=== PATIENT | female | born 1955 | race African-American/Black ===

== ENCOUNTER 2021-06-12 13:45 | Emergency (ER) | payer SELFPAY ==
[~2021-06-12] VITALS: Ht 162.6 cm; Wt 100.2 kg
[2021-06-12 14:29] VITALS: BP 102/46
[2021-06-12] MEDS ORDERED: KETOROLAC TROMETH 60MG/2ML VIAL IM ONE (14:30)
[2021-06-12] MEDS ORDERED: IBUP800T26 PO (14:30)
== END 2021-06-12 18:04 | disposition home or self-care (01) ==
LOC: ER 13:45
DX: S92.332A Displaced fracture of third metatarsal bone, left foot, initial encounter for closed fracture (principal); S92.342A Displaced fracture of fourth metatarsal bone, left foot, initial encounter for closed fracture; S92.352A Displaced fracture of fifth metatarsal bone, left foot, initial encounter for closed fracture; S82.892A Other fracture of left lower leg, initial encounter for closed fracture; W19.XXXA Unspecified fall, initial encounter; Y93.89 Activity, other specified; Y92.89 Other specified places as the place of occurrence of the external cause; Y99.8 Other external cause status
CPT/HCPCS: 29515; 73630; 73700; 96372; 99284; J1885

== ENCOUNTER 2021-12-06 11:43 | Day surgery (SDC) | payer MEDICARE, MEDICAID ==
[2021-12-02 10:23] LABS: Basophils # (auto) 0.1 10 ^3/uL (0-0.2); Basophils % (auto) 0.9 % (0.0-2.0); Eosinophils # (auto) 0.1 10 ^3/uL (0-0.8); Hemoglobin 12.7 g/dL (12.2-16.2); Lymphocytes # (auto) 1.7 10 ^3/uL (0.4-5.4); Neutrophils # (auto) 6.4 10 ^3/uL (1.6-8.6); Nucleated Red Blood Cells % 0.1 %
[2021-12-02 10:25] LABS: Eosinophils % (auto) 1.3 % (0.0-7.0); Lymphocytes % (auto) 18.5 % (10.0-50.0); Mean Corpuscular Hgb Conc. 32.7 g/dL (32.0-36.0); Mean Corpuscular Volume 79.6 fL (80.0-100.0); Monocytes # (auto) 0.8 10 ^3/uL (0-1.3); Monocytes % (auto) 8.6 % (0.0-12.0); Neutrophils % (auto) 70.7 % (37.0-80.0); Red Cell Distribution Width 14.5 % (11.8-14.3); White Blood Cell 9.1 10^3/uL (4.4-10.8)
[2021-12-02 10:53] LABS: Urine Bacteria NONE SEEN /hpf (None Seen); Urine Blood Negative /uL (Negative); Urine Specific Gravity 1.016 (1.001-1.035); Urine WBC 1 /hpf (0 - 5)
[2021-12-02 11:11] LABS: INR 0.93 (0.9-1.15); Partial Thromboplastin Time 26.6 sec (24.6-33.4)
[2021-12-02 11:18] LABS: Potassium 4.1 mmol/L (3.5-5.1)
[2021-12-02 11:29] LABS: Albumin 3.7 g/dL (3.4-5.0); Bilirubin, Total 0.6 mg/dL (0.2-1.0); Calcium 8.9 mg/dL (8.5-10.1); Total Protein 7.2 g/dL (6.4-8.2)
[~2021-12-06] VITALS: Ht 162.6 cm; Wt 103.0 kg
[~2021-12-06 11:43] MED LIST: CITA10TA8 PO; IBUP800T27 PO; METH750T22 PO; PANT40TA2 PO
[2021-12-06] MEDS ORDERED: fentaNYL CITRATE 100 MCG/2 ML VL ONE (12:45)
[2021-12-06] MEDS ORDERED: MIDAZOLAM HCL 2MG/2ML 2ml VIAL (1mg/ml) ONE (12:46)
[2021-12-06] MEDS ORDERED: PROPOFOL 10 MG/ML 20 ML IV ONE (12:50)
[2021-12-06] MEDS ORDERED: ONDANSETRON HCL 4 MG/2 ML VIAL IV PRN (13:45)
[2021-12-06 13:55] VITALS: BP 122/66
== END 2021-12-06 14:55 | disposition home or self-care (01) ==
LOC: GI 11:43
PROVIDERS: ATTEND Internal Medicine Gastroenterology
DX: R10.12 Left upper quadrant pain (principal); K29.50 Unspecified chronic gastritis without bleeding; B96.81 Helicobacter pylori [H. pylori] as the cause of diseases classified elsewhere; E66.01 Morbid (severe) obesity due to excess calories; F17.200 Nicotine dependence, unspecified, uncomplicated; Z98.890 Other specified postprocedural states; Z79.899 Other long term (current) drug therapy; Z68.39 Body mass index [BMI] 39.0-39.9, adult; Z20.822 Contact with and (suspected) exposure to COVID-19
CPT/HCPCS: 36415; 43239; 80053; 81001; 85025; 85610; 85730; 88305; 88342; J2250; J2704; J3010; J7030; U0003; G0500

== ENCOUNTER 2022-03-06 11:31 | Emergency (ER) | payer MEDICARE, MEDICAID ==
[~2022-03-06] VITALS: Ht 162.6 cm; Wt 108.0 kg
[2022-03-06 11:48] VITALS: BP 126/76
[2022-03-06 12:11] LABS: Basophils # (auto) 0.1 10 ^3/uL (0-0.2); Basophils % (auto) 1.1 % (0.0-2.0); Eosinophils # (auto) 0.1 10 ^3/uL (0-0.8); Hematocrit 40.4 % (36.0-46.0); Hemoglobin 13.2 g/dL (12.2-16.2); Lymphocytes # (auto) 1.7 10 ^3/uL (0.4-5.4); Lymphocytes % (auto) 21.5 % (10.0-50.0); Mean Corpuscular Hgb Conc. 32.7 g/dL (32.0-36.0)
[2022-03-06 12:12] LABS: Eosinophils % (auto) 1.1 % (0.0-7.0); Mean Corpuscular Hemoglobin 26.2 pg (28.0-32.0); Monocytes # (auto) 0.7 10 ^3/uL (0-1.3); Monocytes % (auto) 8.4 % (0.0-12.0); Neutrophils # (auto) 5.5 10 ^3/uL (1.6-8.6); Neutrophils % (auto) 67.9 % (37.0-80.0); Nucleated Red Blood Cells % 0.1 %; Red Blood Cells 5.05 10^6/uL (4.0-5.20); Red Cell Distribution Width 14.3 % (11.8-14.3)
[2022-03-06 12:30] LABS: Albumin 3.9 g/dL (3.4-5.0); Calcium 9.1 mg/dL (8.5-10.1); Potassium 4.8 mmol/L (3.5-5.1)
[2022-03-06 12:34] LABS: BUN/Creatinine Ratio 18.7; Bilirubin, Total 0.7 mg/dL (0.2-1.0); Total Protein 7.3 g/dL (6.4-8.2)
[2022-03-06 14:49] LABS: Urine Bacteria NONE SEEN /hpf (None Seen); Urine Blood Negative /uL (Negative); Urine Specific Gravity 1.018 (1.001-1.035); Urine WBC 2 /hpf (0 - 5)
== END 2022-03-06 16:21 | disposition home or self-care (01) ==
LOC: ER 11:31
DX: K80.80 Other cholelithiasis without obstruction (principal); Z79.899 Other long term (current) drug therapy; Z79.1 Long term (current) use of non-steroidal anti-inflammatories (NSAID)
CPT/HCPCS: 36415; 71045; 74176; 80053; 81001; 84484; 85025; 93005

== ENCOUNTER 2024-06-18 12:29 | Emergency (ER) | payer MEDICARE, MEDICAID ==
[~2024-06-18] VITALS: Ht 162.6 cm; Wt 99.5 kg
[~2024-06-18 12:29] MED LIST changes: +IBUP-1456 PO; -IBUP800T27 PO; +METH-1182 PO; -METH750T22 PO
[2024-06-18 13:26] VITALS: BP 116/68; PULSE 67; RESP 19; TEMP 97.5; O2SAT 98
[2024-06-18] MEDS: KETOROLAC TROMETH 30 MG/ML 1ML VIAL IM ONE (13:50)
--- NOTE | 2024-06-18 14:17 | DVH ---
CLINICAL INDICATION: Left Wrist pain TECHNIQUE: 3 radiographic views of the left wrist were obtained. Comparison: None FINDINGS/IMPRESSION: There is no evidence of acute fracture or dislocation. The visualized joint space is well maintained. The alignment is anatomical. There is no radiopaque foreign body.
[2024-06-18] MEDS ORDERED: ACET500T58 PO (14:23)
[2024-06-18] MEDS ORDERED: PRED20TA2 PO (14:23)
--- NOTE | 2024-06-18 14:23 | ED.PDOC ---
Musculoskeletal HPI Comments 69 F presents for subacute L wrist pain No trauma/injury Pain with flexion/extension and no pain at rest Worst to the distal radius Chief Complaint: Upper Extremity Time Seen by MD: 13:13 Primary Care Provider: NONE Reviewed Notes: Nurses Notes, Medications, Allergies Allergies: Coded Allergies: NO KNOWN ALLERGIES (Unverified , 06/12/21) Home Meds Active Scripts Acetaminophen (Acetaminophen) 500 Mg Tab, 500 MG PO Q6HP PRN for 10 Days, #40 TAB 0 Refills Prov:KATYA CONDE AIRCRAFT ELECTRICAL SYSTEMS SPECIALIST 06/18/24 Prednisone (Prednisone) 20 Mg Tab, 60 MG PO DAILY for 5 Days, #15 TAB 0 Refills Prov:KATYA CONDE [employer] ELECTRICAL SYSTEM[employer] SPECIALIST 06/18/24 Reported Medications Ibuprofen (Ibuprofen) 800 Mg Tab, 800 MG PO Q8HP, TAB 12/02/21 Methocarbamol (Methocarbamol) 750 Mg Tab, 750 MG PO DAILY, TAB 12/02/21 Pantoprazole Sodium Sesquihydr (Protonix) 40 Mg Tab, 40 MG PO DAILY, #30 TAB 12/02/21 Citalopram Hydrobromide (Celexa) Unknown Strength Tab, PO, TAB 12/02/21 Information Source: Patient Mode of Arrival: Ambulatory Past Medical History PAST MEDICAL HISTORY: Denies Surgical History: Denies all surgeries 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: Denies all ARTIFICIAL MARBLE WORKER Hx, No Pertinent 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 Family History Family History: Reviewed,noncontributory to illness Social History Smoker: Non-Smoker Alcohol: Denies ETOH Use Drugs: Denies Drug Use Lives In: Home All Other Systems: Reviewed and Negative (per hpi) Physical Exam General Appearance: No Apparent Distress, Normal HEENT: Normal ENT Inspection, Pharynx Normal, TMs Normal Neck: Full Range of Motion, Non-Tender, Normal, Normal Inspection Respiratory: Chest Non-Tender, Lungs Clear, No Accessory Muscle Use, No Respiratory Distress, Normal Breath Sounds Cardiovascular: No Edema, No JVD, No Murmur, No Gallop, Normal Peripheral Pulses, Regular Rate/Rhythm Breast Exam: Deferred Gastrointestinal: No Organomegaly, Non Tender, No Pulsatile Mass, Normal Bowel Sounds, Soft Genitalia: Deferred Pelvic: Deferred Rectal: Deferred Extremities: No calf tenderness, Normal capillary refill, Normal inspection, No rmal range of motion, Non-tender, No pedal edema Musculoskeletal : Location: Left Extremity Location: Wrist (localized ttp) Apperance: Normal Neurologic: Alert, No Motor Deficits, Normal Affect, Normal Mood, No Sensory Deficits Cerebellar Function: Normal Reflexes: Normal Skin: Dry, Normal Color, Warm Lymphatic: No Adenopathy Was a procedure done? Was a procedure done?: No Differential Diagnosis EXT Differential Diagnosis: Sprain X-Ray, Labs, Meds, VS Vital Signs Date Time Temp Pulse Resp B/P (MAP) Pulse Ox O2 Delivery O2 Flow Rate FiO2 06/18/24 13:26 67 19 98 Room Air 06/18/24 13:26 97.5 67 19 116/68 (84) 98 97.5 06/18/24 13:11 97.5 67 19 116/68 (84) 98 97.5 PATIENT: MARGOT KUMAR ACCT: [id number] UNIT: [id number] : 1955 LOC: ER ROOM / BED: / AGE / SEX: 69 / F ADM STATUS: REG ER SERVICE 1346 ORDERING PHYSICIAN: KATYA CONDE NP PROCEDURE(s): LWRI2 - L WRIST 2 VIEW XRAY REASON: Left Wrist pain ORDER NUMBER(s): [id number], ACCESSION NUMBER(s): [id number] CLINICAL INDICATION: Left Wrist pain TECHNIQUE: 3 radiographic views of the left wrist were obtained. Comparison: None FINDINGS/IMPRESSION: There is no evidence of acute fracture or dislocation. The visualized joint space is well maintained. The alignment is anatomical. There is no radiopaque foreign body. ATED BY: ANNAMARIE DC MD DICTATED DATE/TIME: 06/18/241413 SIGNED BY: ANNAMARIE DC MD SIGNED DATE/TIME: 06/18/241413 CC: X-Ray, Labs, Meds, VS Comment History and examination consistent of muscular injury or tendinitis Low likelihood of bony or more serious injury, VSS, pt stable X-ray ordered amd interpreted by me Take IBU 600 w/ food as needed for pain Recommended heat therapy Reviewed RICE management Avoid heavy lifting or strenuous activity Recommended range of motion exercises and limit heavy activity for 1 week Return precautions discussed Time of 1ST Reevaluation: 14:00 Reevaluation 1ST: Improved Patient Education/Counseling: Diagnosis, Treatment Family Education/Counseling: Diagnosis, Treatment Departure 1 Departure Time of Disposition: 14:22 Impression: Primary Impression: Wrist pain Qualified Codes: M25.532 - Pain in left wrist Disposition: 01 HOME / SELF CARE / HOMELESS Condition: Stable e-Prescriptions Acetaminophen (Acetaminophen) 500 Mg Tab 500 MG PO Q6HP PRN for 10 Days, #40 TAB 0 Refills Prov: KATYA CONDE NP 06/18/24 Prednisone (Prednisone) 20 Mg Tab 60 MG PO DAILY for 5 Days, #15 TAB 0 Refills Prov: KATYA CONDE NP 06/18/24 Discharged With: Self Critical Care Note Critical Care Time?: No Stability Stability form required: No Heart Score Heart Score: Heart Score Response (Comments) Value History N/A 0 EKG N/A 0 Age N/A 0 Risk Factors N/A 0 Troponin N/A 0 Total 0 KATYA CONDE NP Jun 18, 2024 14:23
== END 2024-06-18 14:28 | disposition home or self-care (01) ==
LOC: ER 12:29
DX: M25.532 Pain in left wrist (principal); Z79.899 Other long term (current) drug therapy; Z79.52 Long term (current) use of systemic steroids
CPT/HCPCS: 73100; 96372; 99283; J1885

== ENCOUNTER 2025-03-28 10:11 | Inpatient (IN) | payer OTHER, MEDICAID ==
[~2025-03-28] VITALS: Ht 160 cm; Wt 101.6 kg
[~2025-03-28 10:11] MED LIST changes: +ACET500T58 PO; +PRED20TA2 PO
[2025-03-28] MEDS: SODIUM CHLORIDE 0.9% 1,000 ML IV ONE ×2 (11:23→12:10)
[2025-03-28] MEDS ORDERED: ACETAMINOPHEN 650 MG RECT SUPP PR ONE (11:30)
--- NOTE | 2025-03-28 11:31 | ED.PDOC ---
GI ASSESSMENT HPI Comments 69 y.o female presents to the ED for a chief complaint of constipation. Patient was unable to pass BM for 4 days, states she then had a BM yesterday but developed SOB and generalized weakness leading up to today. Patient mentions " feeling sick", weak and trembling. She denies any abdominal pain, fever, chills, nausea, vomiting, diarrhea. patient BP read 89/56 while awaiting in the lobby. Chief Complaint: Constipation Time Seen by MD: 11:16 Primary Care Provider: NONE Reviewed Notes: Nurses Notes, Medications, Allergies Allergies: Coded Allergies: NO KNOWN ALLERGIES (Unverified , 06/12/21) Home Meds Active Scripts Acetaminophen (Acetaminophen) 500 Mg Tab, 500 MG PO Q6HP PRN for 10 Days, #40 TAB 0 Refills Prov:KATYA CONDE CEO ZIFF DAVIS 06/18/24 Prednisone (Prednisone) 20 Mg Tab, 60 MG PO DAILY for 5 Days, #15 TAB 0 Refills Prov:KATYA CONDE CEO ZIFF DAVIS 06/18/24 Reported Medications Ibuprofen (Ibuprofen) 800 Mg Tab, 800 MG PO Q8HP, TAB 12/02/21 Methocarbamol (Methocarbamol) 750 Mg Tab, 750 MG PO DAILY, TAB 12/02/21 Pantoprazole Sodium Sesquihydr (Protonix) 40 Mg Tab, 40 MG PO DAILY, #30 TAB 12/02/21 Citalopram Hydrobromide (Celexa) Unknown Strength Tab, PO, TAB 12/02/21 Information Source: Patient Mode of Arrival: Ambulatory Timing: Days (4) Duration: Since onset Vomitus: None Stool: Empty Severity: Moderate Recent: None Recent Hx of: None Pain Location: None Modifying Factors: Nothing Associated sign and symptoms: Constipation Past Medical History PAST MEDICAL HISTORY: Denies Surgical History: Cholecystectomy 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 INSPECTOR History: Denies all FABRICATION INSPECTOR Hx, No Pertinent FABRICATION INSPECTOR History Family History Family History: Reviewed,noncontributory to illness Social History Smoker: Non-Smoker Alcohol: Denies ETOH Use Drugs: Denies Drug Use Lives In: Home Constitutional: reports: weakness; denies: chills, diaphoresis, fatigue, fever, malaise, sweats, others EENTM: denies: blurred vision, double vision, ear bleeding, ear discharge, ear drainage, ear pain, ear ringing, eye pain, eye redness, hearing loss, mouth pain, mouth swelling, nasal discharge, nose bleeding, nose congestion, nose pain, photophobia, tearing, throat pain, throat swelling, voice changes, others Respiratory: reports: SOB at rest, shortness of breath; denies: cough, hemoptysis, orthopnea, SOB with excertion, stridor, wheezing, others Cardiovascular: denies: chest pain, dizzy spells, diaphoresis, Dyspnea on exertion, edema, irregular heart beat, left arm pain, lightheadedness, palpitations, PND, syncope, others Gastrointestinal: reports: constipated; denies: abdomen distended, abdominal pain, blood streaked bowels, diarrhea, dysphagia, difficulty swallowing, hematemesis, melena, nausea, poor appetite, poor fluid intake, rectal bleeding, rectal pain, vomiting, others Genitourinary: denies: abnormal vagina bleeding, burning, dyspareunia, dysuria, flank pain, frequency, hematuria, incontinence, pain, , vagina discharge, urgency, others Neurological: denies: dizziness, fainting, headache, left sided numbness, left sided weakness, numbness, paresthesia, pre-existing deficit, right sided numbness, right sided weakness, seizure, speech problems, tingling, tremors, weakness, others Musculoskeletal: denies: back pain, gout, joint pain, joint swelling, muscle pain, muscle stiffness, neck pain, others Integumetry: denies: bruises, change in color, change in hair/nails, dryness, laceration, lesions, lumps, rash, wounds, others Allergic/Immunocompromised: denies: Difficulty Healing, Frequent Infections, Hives, Itching, others Hematologic/Lymphatic: denies: anemia, blood clots, easy bleeding, easy bruising, swollen glands, others Endocrine: denies: excessive hunger, excessive sweating, excessive thirst, excessive urination, flushing, intolerance to cold, intolerance to heat, une xplained weight gain, unexplained weight loss, others Psychiatric: denies: anxiety, bipolar disorder, depression, hopeless, panic disorder, schizophrenia, sleepless, suicidal, others All Other Systems: Reviewed and Negative Physical Exam General Appearance: Moderate Distress HEENT: Normal ENT Inspection, Pharynx Normal, TMs Normal Neck: Full Range of Motion, Non-Tender, Normal, Normal Inspection Respiratory: Chest Non-Tender, Lungs Clear, No Accessory Muscle Use, No Respiratory Distress, Normal Breath Sounds Cardiovascular: Tachycardia Breast Exam: Deferred Gastrointestinal: No Organomegaly, Non Tender, No Pulsatile Mass, Normal Bowel Sounds, Soft Genitalia: Deferred Pelvic: Deferred Rectal: Deferred Extremities: No calf tenderness, Normal capillary refill, Normal inspection, Normal range of motion, Non-tender, No pedal edema Musculoskeletal : Apperance: Normal Neurologic: Alert, suction drum drier operator II-XII nml as Tested, No Motor Deficits, Normal Affect, Normal Mood, No Sensory Deficits Cerebellar Function: NOT DONE Reflexes: NOT DONE Skin: Dry, Normal Color, Warm Peripheral Pulses: 3+ Radial (R), 3+ Radial (L) Lymphatic: No Adenopathy Was a procedure done? Was a procedure done?: No GI differential Dx Differential Diagnosis: Bowel Obstruction, Constipation, Esophagitis, Gastritis/PUD, Gastroenteritis, Inflammatory BD X-Ray, Labs, Meds, VS Vital Signs Date Time Temp Pulse Resp B/P (MAP) Pulse Ox O2 Delivery O2 Flow Rate FiO2 03/28/25 11:48 100.4 03/28/25 11:24 100.4 109 21 89/56 (67) 94 100.4 03/28/25 10:15 97.9 114 18 92/58 96 97.9 Lab Test 03/28/25 11:23 Range/Units White Blood Count 16.7 H 4.4-10.8 10^3/uL Red Blood Count 5.11 4.0-5.20 10^6/uL Hemoglobin 13.5 12.2-16.2 g/dL Hematocrit 40.4 36.0-46.0 % Mean Corpuscular Volume 79.1 L 80.0-100.0 fL Mean Corpuscular Hemoglobin 26.4 L 28.0-32.0 pg Mean Corpuscular Hemoglobin Concent 33.4 32.0-36.0 g/dL Red Cell Distribution Width 14.6 H 11.8-14.3 % Platelet Count 319 140-450 10^3/uL Mean Platelet Volume 9.1 6.9-10.8 fL Neutrophils (%) (Auto) 87.8 H 37.0-80.0 % Lymphocytes (%) (Auto) 5.7 L 10.0-50.0 % Monocytes (%) (Auto) 5.7 0.0-12.0 % Eosinophils (%) (Auto) 0.2 0.0-7.0 % Basophils (%) (Auto) 0.6 0.0-2.0 % Neutrophils # (Auto) 14.7 H 1.6-8.6 10 ^3/uL Lymphocytes # (Auto) 1.0 0.4-5.4 10 ^3/uL Monocytes # (Auto) 1.0 0-1.3 10 ^3/uL Eosinophils # (Auto) 0 0-0.8 10 ^3/uL Basophils # (Auto) 0.1 0-0.2 10 ^3/uL Nucleated Red Blood Cells 0.1 % Sodium Level 140 136-145 mmol/L Potassium Level 4.2 3.5-5.1 mmol/L Chloride Level 107 98-107 mmol/L Carbon Dioxide Level 21 20-31 mmol/L Anion Gap 12 5-15 Blood Urea Nitrogen 8 L 9-23 mg/dL Creatinine 1.55 H 0.550-1.02 mg/dL Glomerular Filtration Rate Calc 36 >90 mL/min BUN/Creatinine Ratio 5.2 L 10.0-20.0 Serum Glucose 99 74-106 mg/dL Lactic Acid Level 1.8 0.4-2.0 mmol/L Calcium Level 8.8 8.7-10.4 mg/dL Current Medications Medications (Trade) Dose Ordered Sig/Leonidas Route Start Time Stop Time Status Last Admin Sodium Chloride 1,000 ml @ 1,000 mls/hr Q1H ONCE IV 03/28/25 11:15 03/28/25 12:14 DC 03/28/25 11:23 Sodium Chloride 1,650 ml @ 1,650 mls/hr ONCE ONCE IV 03/28/25 11:30 03/28/25 12:29 DC 03/28/25 11:40 Acetaminophen (Tylenol Tablet) 650 mg ONCE ONCE PO 03/28/25 11:45 03/28/25 11:46 DC 03/28/25 11:48 Ceftriaxone Sodium 50 ml @ 100 mls/hr ONCE ONCE IV 03/28/25 11:45 03/28/25 12:14 DC 03/28/25 11:48 Metronidazole 100 ml @ 100 mls/hr ONCE ONCE IV 03/28/25 11:45 03/28/25 12:44 DC 03/28/25 11:49 Patient alert. Complaining of abdominal pain. Vitals stable. Answering questions. Possible sepsis. Establish intravenous access. Was given fluids. Sepsis protocol. Continue monitoring. Time of 1ST Reevaluation: 11:27 Reevaluation 1ST: Unchanged Patient Education/Counseling: Diagnosis, Treatment, Prognosis Family Education/Counseling: No Family Present SEPSIS Sepsis Screen Date sepsis recognized/suspect: Mar 28, 2025 Time Sepsis recognized/suspect: 1017 Recent Procedure: No On Antibiotic Therapy: No Respiratory Rate >20: No Heart Rate >90: Yes Temp<36 C (96.8 F) or >38.3 C: No SBP <90 or MAP <65 mmHG: No New Acute Mental Status Change: No Is the patient on CPAP, BIPAP,: No Physician Orders Ct Ab Pel Wo Con-No Oral Or Iv (03/28/25 11:10) Blood Culture (03/28/25 11:10) Urinalysis (03/28/25 11:10) Sodium Chloride 0.9% (03/28/25 11:15) Vital Signs Date Time Temp Pulse Resp B/P (MAP) Pulse Ox O2 Delivery O2 Flow Rate FiO2 03/28/25 11:48 100.4 03/28/25 11:24 100.4 109 21 89/56 (67) 94 100.4 03/28/25 10:15 97.9 114 18 92/58 96 97.9 Laboratory Tests Test 03/28/25 11:23 Lactic Acid Level 1.8 mmol/L (0.4-2.0) White Blood Count 16.7 10^3/uL (4.4-10.8) H Medications Medications Dose Ordered Sig/Leonidas Route Start Time Stop Time Status Last Admin Dose Admin Acetaminophen 650 mg ONCE ONCE PO 03/28/25 11:45 03/28/25 11:46 DC 03/28/25 11:48 Ceftriaxone Sodium 50 ml @ 100 mls/hr ONCE ONCE IV 03/28/25 11:45 03/28/25 12:14 DC 03/28/25 11:48 Metronidazole 100 ml @ 100 mls/hr ONCE ONCE IV 03/28/25 11:45 03/28/25 12:44 DC 03/28/25 11:49 Sodium Chloride 1,000 ml @ 1,000 mls/hr Q1H ONCE IV 03/28/25 11:15 03/28/25 12:14 DC 03/28/25 11:23 Sodium Chloride 1,650 ml @ 1,650 mls/hr ONCE ONCE IV 03/28/25 11:30 03/28/25 12:29 DC 03/28/25 11:40 Departure 1 Departure Time of Disposition: 12:50 Impression: Primary Impression: Sepsis, unspecified organism Qualified Codes: A41.9 - Sepsis, unspecified organism Disposition: ADMITTED INPATIENT Admit to: Med Surg Condition: Guarded Critical Care Note Critical Care Time?: No Stability Stability form required: No I personally scribed for KALIE WALKER MD ([email or web address]) on 03/28/25 at 11:31. Electronically submitted by Opal Reid ([facility]). KALIE WALKER MD Mar 28, 2025 11:31
[2025-03-28] MEDS: SODIUM CHLORIDE 0.9% 1,650 ML IV ONE (11:40)
[2025-03-28] MEDS: ACETAMINOPHEN 325 MG TAB PO ONE ×2 (11:48→11:54)
[2025-03-28 11:53] LABS: Hematocrit 40.4 % (36.0-46.0); Hemoglobin 13.5 g/dL (12.2-16.2); Mean Corpuscular Hemoglobin 26.4 pg (28.0-32.0); Mean Corpuscular Volume 79.1 fL (80.0-100.0); Nucleated Red Blood Cells % 0.1 %
[2025-03-28 11:59] LABS: Potassium 4.2 mmol/L (3.5-5.1); Sodium 140 mmol/L (136-145)
[2025-03-28 12:00] LABS: Anion Gap 12 (5-15); Carbon Dioxide 21 mmol/L (20-31)
[2025-03-28 12:01] LABS: Calcium 8.8 mg/dL (8.7-10.4)
[2025-03-28 12:05] LABS: Glucose 99 mg/dL (74-106)
[2025-03-28 12:06] LABS: BUN/Creatinine Ratio 5.2 (10.0-20.0)
--- NOTE | 2025-03-28 12:20 | DVH ---
EXAM DESCRIPTION: CT CT AB PEL WO CON-NO ORAL OR IV CLINICAL HISTORY: constipation COMPARISON: CT ABD PELVIS WO CONTRAST on DOS: 03/06/22 TECHNIQUE: CT abdomen and pelvis without IV contrast was performed. Coronal and sagittal MPR images were generated.CTDI/ DLP = 19.09 / 1118.26 Dose reduction technique with one or more of the following methods was performed: Automated exposure control, adjustment of the mA and/or kV according to patient size, use of iterative reconstruction technique FINDINGS: Lower chest: Stable pulmonary micronodules in the lung bases. Liver: Homogenous in attenuation. . Biliary: Status post cholecystectomy. No biliary ductal dilatation. Pancreas: No fat stranding or focal lesion. Spleen: Normal in size.. Adrenal glands: No nodularity. Kidneys: No nephrolithiasis. No hydroureteronephrosis. . Bladder: Underdistended, limiting evaluation. Reproductive organs: Normal. Bowel: No bowel wall thickening or dilatation. Colonic diverticulosis without evidence of diverticulitis. Normal appendix.. Peritoneum: No free fluid. No free air. Vessels: Normal caliber abdominal aorta. Moderate atherosclerotic calcifications.. Lymph nodes: No suspicious lymph nodes. Soft tissues: Unremarkable. . Osseous structures: No acute fracture or subluxation. No suspicious osseous lesions. Degenerative changes of the visualized thoracolumbar spine. IMPRESSION: 1. No acute abnormality within the abdomen or pelvis.
[2025-03-28 12:28] LABS: Blood Urea Nitrogen 8 mg/dL (9-23); Chloride 107 mmol/L (98-107)
[2025-03-28] MEDS ORDERED: VANCOMYCIN PER PHARMACY 0 MG IV SCH (13:15)
[2025-03-28] MEDS ORDERED: ACETAMINOPHEN 325 MG TAB PO PRN (13:15)
[2025-03-28] MEDS ORDERED: ONDANSETRON HCL 4 MG/2 ML VIAL IV PRN (13:15)
--- NOTE | 2025-03-28 13:21 | DVHHPRES ---
History of Present Illness Resident Creating Document: OSCAR VALENTIN RESIDENT History of Present Illness Judy Marcos is a 69-year-old female patient who presents to the ED with chief complaint of generalized weakness, fatigue, chills and headaches which all started one night before her admission. Upon arrival to emergency department patient was found to have low-grade fever, leukocytosis and hypotension, initiating IV vasopressors, IV antibiotics, IV fluids and ordering pancultures.. Denies any other associated symptoms including dysuria, abdominal pain, dyspnea, meningeal symptoms and skin lesions. Past medical history: Chronic back pain Surgical history: Cholecystectomy Family history: Noncontributory Social history: Lives in [place] alone (next of kin is son). Denies current tobacco, alcohol and other drug abuse. 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 Allergies: Denies Home medication: [place] Patient seen and examined at bedside. Currently has no new complaints. Is requiring low-dose of IV vasopressors. Patient admitted for further evaluation. Past Medical History Per HPI Past Surgical History Per HPI Family History Per HPI Past Social History Per Review of Systems Review of Systems Per HPI Allergies: Coded Allergies: NO KNOWN ALLERGIES (Unverified , 06/12/21) Medications Current Medications Medications Dose Ordered Sig/Leonidas Route Start Time Stop Time Status Last Admin Dose Admin Norepinephrine Bitartrate 250 ml @ 3.75 mls/hr Q24H IV 03/28/25 13:15 UNV Exam Vital Signs Vital Signs Date Time Temp Pulse Resp B/P (MAP) Pulse Ox O2 Delivery O2 Flow Rate FiO2 03/28/25 11:48 100.4 03/28/25 11:24 109 21 89/56 (67) 94 Exam Patient lying in bed, in no acute distress General: Lucid, afebrile, mucosae are moist Cardiovascular: Normal S1 and S2. No murmurs, gallops or rubs Respiratory: Normal ventilation mechanics. Clear lung sounds on auscultation Abdomen: Soft, nontender, no organomegaly, normal bowel sounds MSK/skin: Mobilizes 4 limbs. Skin is dry and warm Neurological: Oriented in 3 spheres. No motor no sensitive deficits. Pupils are isocoric and reactive Labs/Xrays Labs Test 03/28/25 11:23 03/28/25 11:22 Range/Units White Blood Count 16.7 H 4.4-10.8 10^3/uL Red Blood Count 5.11 4.0-5.20 10^6/uL Hemoglobin 13.5 12.2-16.2 g/dL Hematocrit 40.4 36.0-46.0 % Mean Corpuscular Volume 79.1 L 80.0-100.0 fL Mean Corpuscular Hemoglobin 26.4 L 28.0-32.0 pg Mean Corpuscular Hemoglobin Concent 33.4 32.0-36.0 g/dL Red Cell Distribution Width 14.6 H 11.8-14.3 % Platelet Count 319 140-450 10^3/uL Mean Platelet Volume 9.1 6.9-10.8 fL Neutrophils (%) (Auto) 87.8 H 37.0-80.0 % Lymphocytes (%) (Auto) 5.7 L 10.0-50.0 % Monocytes (%) (Auto) 5.7 0.0-12.0 % Eosinophils (%) (Auto) 0.2 0.0-7.0 % Basophils (%) (Auto) 0.6 0.0-2.0 % Neutrophils # (Auto) 14.7 H 1.6-8.6 10 ^3/uL Lymphocytes # (Auto) 1.0 0.4-5.4 10 ^3/uL Monocytes # (Auto) 1.0 0-1.3 10 ^3/uL Eosinophils # (Auto) 0 0-0.8 10 ^3/uL Basophils # (Auto) 0.1 0-0.2 10 ^3/uL Nucleated Red Blood Cells 0.1 % Lactic Acid Level 1.8 0.4-2.0 mmol/L SEPSIS Sepsis Screen Date sepsis recognized/suspect: Mar 28, 2025 Time Sepsis recognized/suspect: 1017 Recent Procedure: No On Antibiotic Therapy: No Respiratory Rate >20: No Heart Rate >90: Yes Temp<36 C (96.8 F) or >38.3 C: No SBP <90 or MAP <65 mmHG: No New Acute Mental Status Change: No Is the patient on CPAP, BIPAP,: No Physician Orders Ct Ab Pel Wo Con-No Oral Or Iv (03/28/25 11:10) Blood Culture (03/28/25 11:10) Urinalysis (03/28/25 11:10) Sodium Chloride 0.9% (03/28/25 11:15) Norepinephrine 8 Mg/250ml Kit (Levophed) (03/28/25 13:15) Vitamin D, 25-Hydroxy (03/28/25 13:11) Vitamin B12 (03/28/25 13:11) Urinalysis (03/28/25 13:11) Thyroid Stimulating Hormone (03/28/25 13:11) PTPTT (03/28/25 13:11) Phosphorus (03/28/25 13:11) Magnesium (03/28/25 13:11) Lipid Panel (03/28/25 13:11) Lipase (03/28/25 13:11) Hemoglobin A1c (03/28/25 13:11) Drug Screen (03/28/25 13:11) Comprehensive Metabolic Panel (03/28/25 13:11) Chest Xray 1 View (03/28/25 13:11) Urine Bacterial Culture (03/28/25 13:11) Respiratory Culture W/ Gs (03/28/25 13:11) Mrsa Screen (03/28/25 13:11) Rapid Influenza A&B (03/28/25 13:11) Covid19 Antigen Abby (03/28/25 ) Hepatic Panel (03/28/25 13:13) Admit (03/28/25 13:13) Code Status (03/28/25 13:13) Acetaminophen Tablet (Tylenol Tablet) (03/28/25 13:15) Ondansetron Hcl (Zofran) (03/28/25 13:15) Complete Blood Count (03/29/25 04:00) Comprehensive Metabolic Panel (03/29/25 04:00) Npo (Nothing By Mouth) Diet (03/28/25 Lunch) Echo 2d Mode Cardiac Dop (03/28/25 13:13) Morphine Sulfate Injection (03/28/25 13:15) Enoxaparin Sodium (Lovenox) (03/29/25 10:00) Oxygen By Nasal Cannula (03/28/25 13:13) Stat Ekg For Chest Pain (03/28/25 13:13) Notify Md Of Changes From Base (03/28/25 13:13) Abstract Writer For 24 Hours (03/28/25 13:13) Emergency Dysrhythmia Protocol (03/28/25 13:13) Rhythm Strips Once Every Shift (03/28/25 13:13) Sodium Chloride 0.9% (03/28/25 13:15) Cefepime 1gm/50ml (Maxipime 1gm/50ml) (03/28/25 14:00) Vancomycin Per Pharmacy (03/28/25 13:15) Vital Signs Date Time Temp Pulse Resp B/P (MAP) Pulse Ox O2 Delivery O2 Flow Rate FiO2 03/28/25 11:48 100.4 03/28/25 11:24 100.4 109 21 89/56 (67) 94 100.4 03/28/25 10:15 97.9 114 18 92/58 96 97.9 Laboratory Tests Test 03/28/25 11:23 Lactic Acid Level 1.8 mmol/L (0.4-2.0) White Blood Count 16.7 10^3/uL (4.4-10.8) H Medications Medications Dose Ordered Sig/Leonidas Route Start Time Stop Time Status Last Admin Dose Admin Acetaminophen 650 mg ONCE ONCE PO 03/28/25 11:45 03/28/25 11:46 DC 03/28/25 11:48 650 MG Ceftriaxone Sodium 50 ml @ 100 mls/hr ONCE ONCE IV 03/28/25 11:45 03/28/25 12:14 DC 03/28/25 11:48 100 MLS/HR Metronidazole 100 ml @ 100 mls/hr ONCE ONCE IV 03/28/25 11:45 03/28/25 12:44 DC 03/28/25 11:49 100 MLS/HR Sodium Chloride 1,000 ml @ 1,000 mls/hr Q1H ONCE IV 03/28/25 11:15 03/28/25 12:14 DC 03/28/25 11:23 1,000 MLS/HR Sodium Chloride 1,650 ml @ 1,650 mls/hr ONCE ONCE IV 03/28/25 11:30 03/28/25 12:29 DC 03/28/25 11:40 1,650 MLS/HR Assessment/Plan Assessment/Plan ASSESSMENT Septic shock probably secondary to UTI Complicated UTI TIMI hemodynamically mediated (VMN) Chronic back pain Obesity PLAN Admit patient to ICU. Currently on IV fluids, IV vasopressors (norepinephrine low-dose) Urine analysis shows mildly positive esterase. Currently under empiric IV antibiotic (cefepime and vancomycin). Evaluate deescalating vancomycin once obtaining culture results. Obtain abdomen and pelvis CT and chest x-ray which showed no acute findings Goals of care discussed with patient for over 18 minutes: Full code status Discussed plan with Dr. Joshi, patient and nurses: Currently in ICU status. Requiring IV vasopressors, IV fluids and empiric IV antibiotic. Awaiting results of pancultures. Plan discussed with: Patient, Other (Nurses) My Orders Orders - OSCAR VALENTIN RESIDENT Procedure Category Date Status Time Vitamin D, 25-Hydroxy LAB 03/28/25 In Process 13:11 Vitamin B12 LAB 03/28/25 In Process 13:11 Urinalysis LAB 03/28/25 Logged 13:11 Thyroid Stimulating LAB 03/28/25 In Process Hormone 13:11 PTPTT LAB 03/28/25 In Process 13:11 Phosphorus LAB 03/28/25 In Process 13:11 Magnesium LAB 03/28/25 In Process 13:11 Lipid Panel LAB 03/28/25 In Process 13:11 Lipase LAB 03/28/25 In Process 13:11 Hemoglobin A1c LAB 03/28/25 In Process 13:11 Drug Screen LAB 03/28/25 Logged 13:11 Comprehensive LAB 03/28/25 In Process Metabolic Panel 13:11 Chest Xray 1 View XY 03/28/25 Logged 13:11 Urine Bacterial OSCAR 03/28/25 Logged Culture 13:11 Respiratory Culture OSCAR 03/28/25 Logged W/ Gs 13:11 Mrsa Screen OSCAR 03/28/25 Logged 13:11 Rapid Influenza A&B LAB 03/28/25 Logged 13:11 Covid19 Antigen Abby LAB 03/28/25 Logged Hepatic Panel LAB 03/28/25 In Process 13:13 Admit ADMIT 03/28/25 Transmitted 13:13 Code Status CODE 03/28/25 Transmitted 13:13 Acetaminophen Tablet PHA 03/28/25 Logged (Tylenol Tablet) 13:15 Ondansetron Hcl PHA 03/28/25 Logged (Zofran) 13:15 Complete Blood Count LAB 03/29/25 Verified 04:00 Comprehensive LAB 03/29/25 Verified Metabolic Panel 04:00 Npo (Nothing By DIET 03/28/25 Transmitted Mouth) Diet Lunch Echo 2d Mode Cardiac US 03/28/25 Logged DOP 13:13 Morphine Sulfate PHA 03/28/25 Logged Injection 13:15 Enoxaparin Sodium PHA 03/29/25 Logged (Lovenox) 10:00 Oxygen By Nasal RT 03/28/25 Transmitted Cannula 13:13 Stat Ekg For Chest [facility] 03/28/25 In Process Pain 13:13 Notify Md Of Changes [facility] 03/28/25 In Process From Base 13:13 Abstract Writer For [facility] 03/28/25 In Process 24 Hours 13:13 Emergency Dysrhythmia [facility] 03/28/25 In Process Protocol 13:13 Rhythm Strips Once [facility] 03/28/25 In Process Every Shift 13:13 Sodium Chloride 0.9% [facility] 03/28/25 Logged 13:15 Cefepime 1gm/50ml PHA 03/28/25 Logged (Maxipime 1gm/50ml) 14:00 Vancomycin Per PHA 03/28/25 Logged Pharmacy 13:15 Visit Coding STANDARD RES Billing Provider: TYSHAWN JOSHI MD Date of Service if different f: Mar 28, 2025 Common Visit Codes: 72528-CPHDIUL INP/OBS CARE (HIGH) Secondary Visit Codes: 54185-[id number] CARE PLAN 30 MINUTES OSCAR VALENTIN RESIDENT Mar 28, 2025 13:21
[2025-03-28] MEDS: PANTOPRAZOLE 40 MG/10 ML VIAL INJ IV ONE (13:30)
[2025-03-28 13:50] LABS: INR 1.02 (0.9-1.15); Partial Thromboplastin Time 27.9 SEC (24.5-34.5); Prothrombin Time 10.8 sec (9.3-11.8)
[2025-03-28 13:52] LABS: Albumin 4.5 g/dL (3.2-4.8); Alkaline Phosphatase 100 U/L (46-116); Anion Gap 13 (5-15); BUN/Creatinine Ratio 5.1 (10.0-20.0); Calcium 8.9 mg/dL (8.7-10.4); Cholesterol 147 mg/dL (< 200); Glucose 98 mg/dL (74-106); HDL Cholesterol 45 mg/dL (40-59); Magnesium 2.0 mg/dL (1.6-2.6); Potassium 4.3 mmol/L (3.5-5.1); Sodium 140 mmol/L (136-145); Total Protein 7.4 g/dL (5.7-8.2); Triglycerides 122 mg/dL (< 150)
[2025-03-28 13:53] LABS: Bilirubin, Total 1.0 mg/dL (0.2-1.0)
[2025-03-28 13:54] LABS: Alanine Aminotransferase 97 U/L (7-40); Blood Urea Nitrogen 8 mg/dL (9-23); Carbon Dioxide 19 mmol/L (20-31); Chloride 108 mmol/L (98-107)
[2025-03-28] MEDS ORDERED: CEFEPIME 1GM/50ML 50 ML IV SCH (14:00)
--- NOTE | 2025-03-28 14:11 | DVH ---
CHEST RADIOGRAPH INDICATION: Sepsis TECHNIQUE: Single frontal view of the chest was obtained COMPARISON: CHEST PORTABLE on DOS: 03/06/22, CXRP on DOS: 03/06/22, CXR2 on DOS: 12/02/21 FINDINGS: Lines and Tubes: None Lungs: Clear Pleura: No effusion. No pneumothorax. Cardiomediastinal contours: Unremarkable Bones: Unremarkable IMPRESSION: 1. No acute disease.
[2025-03-28 14:22] VITALS: PULSE 87; RESP 20; O2SAT 96
[2025-03-28] MEDS: VANCOMYCIN 1GM/250ML KIT 250 ML IV SCH (14:31)
[2025-03-28 14:33] LABS: Lipase 33 U/L (12-53)
[2025-03-28] MEDS: VANCOMYCIN 1GM/250ML KIT 250 ML IV ONE ×2 (14:33→16:02)
[2025-03-28 15:06] LABS: Urine Protein, UAD TRACE (Negative)
[2025-03-28 15:13] LABS: Opiate Scree,Urine Pos (NEGATIVE)
[2025-03-28] MEDS: NOREPINEPHRINE 8 MG/250ML KIT 250 ML IV ONE (15:20)
[2025-03-28 15:28] LABS: Amphetamine Screen, Urine Neg (NEGATIVE); Barbiturate Scree,Urine Neg (NEGATIVE); Benzodiazephine Screen, Urine Neg (NEGATIVE); Cannabinoid Screen, Urine Neg (NEGATIVE); Cocaine Screen, Urine Neg (NEGATIVE); Phencyclidine Screen, Urine Neg (NEGATIVE)
[2025-03-28] MEDS: SODIUM CHLORIDE 0.9% 1,000 ML IV SCH (15:36)
[2025-03-28] MEDS: NOREPINEPHRINE 8 MG/250ML KIT 250 ML IV SCH (15:42)
[2025-03-28 17:56] LABS: COVID19 ANTIGEN SOFIA FIA NEGATIVE (NEGATIVE)
[2025-03-28 19:30] VITALS: PULSE 73; RESP 18; O2SAT 96
[2025-03-28] MEDS: SODIUM PHOSPHATES 20 MEQ in SODIUM CHL 0.9% 100 ML IV ONE (19:30)
[2025-03-28] MEDS: CEFEPIME 1GM/50ML 50 ML IV SCH (22:00)
[2025-03-29] VITALS (8 sets, daily range): BP systolic 121–134; BP diastolic 63–77; PULSE 65–75; RESP 11–98; TEMP 95.7–98.2; O2SAT 95–100
[2025-03-29] MEDS: MORPHINE SULFATE 4 MG/ML SYR/VIAL ONE (05:33)
[2025-03-29] MEDS: MORPHINE SULFATE 4 MG/ML SYR/VIAL IV PRN (05:34)
[2025-03-29 06:55] LABS: Mean Corpuscular Hemoglobin 26.2 pg (28.0-32.0); Nucleated Red Blood Cells % 0.1 %
[2025-03-29 06:57] LABS: Hematocrit 35.5 % (36.0-46.0); Hemoglobin 11.9 g/dL (12.2-16.2); Mean Corpuscular Volume 78.1 fL (80.0-100.0)
[2025-03-29 07:12] LABS: Albumin 3.6 g/dL (3.2-4.8); Alkaline Phosphatase 78 U/L (46-116); Anion Gap 8 (5-15); BUN/Creatinine Ratio 10.5 (10.0-20.0); Bilirubin, Total 0.8 mg/dL (0.2-1.0); Carbon Dioxide 23 mmol/L (20-31); Glucose 91 mg/dL (74-106); Potassium 3.7 mmol/L (3.5-5.1); Total Protein 6.1 g/dL (5.7-8.2)
[2025-03-29 07:14] LABS: Blood Urea Nitrogen 8 mg/dL (9-23); Chloride 114 mmol/L (98-107); Sodium 145 mmol/L (136-145)
[2025-03-29 07:15] LABS: Alanine Aminotransferase 283 U/L (7-40); Calcium 7.8 mg/dL (8.7-10.4)
[2025-03-29] MEDS: ENOXAPARIN SOD 40 MG/0.4 ML SYRINGE SC SCH (10:05)
[2025-03-29] MEDS: PANTOPRAZOLE 40 MG/10 ML VIAL INJ IV SCH (10:05)
[2025-03-29] MEDS: SODIUM CHLORIDE 0.9% 500 ML IV ONE (11:17)
--- NOTE | 2025-03-29 13:11 | DVHPNRES ---
Progress Note Date Seen: Mar 29, 2025 Resident Creating Document: OLIVE GORDON RESIDENT Medical Necessity Reason Pt with a Central, PICC or Fol: No Subjective Review of Systems Judy Marcos is a 69-year-old female patient who presents to the ED with chief complaint of generalized weakness, fatigue, chills and headaches which all started one night before her admission. On further inquiry patient also reported increased frequency and urgency of micturition lately. She was not eating well and drinking when lately. Upon arrival to emergency department patient was found to have low-grade fever, leukocytosis with WBC 16.7, microcytosis with MCV 79.1, COVID and flu negative, urinalysis revealed leukocyte esterase 2+, WBC 4, bacteria few. CT abdomen and pelvis- No acute abnormality within the abdomen or pelvis. UDS positive for opiates. Ultrasound of the liver unremarkable, status post cholecystectomy On arrival patient was found to have hypotension, IV vasopressors was initiated, patient was put on IV antibiotic and IV fluid and panculture was ordered. Past medical history: Chronic back pain Surgical history: Cholecystectomy Family history: Noncontributory Social history: Lives in [place] alone (next of kin is son). Denies current tobacco, alcohol and other drug abuse. 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 Allergies: Denies Home medication: [place] Patient was seen today at bedside Labs and chart reviewed Patient reported feeling better now Patient is off Levophed Patient's soft BP, ordered IV normal 500 bolus Blood culture no growth so far Pending urine culture, MRSA screening Patient on IV antibiotic cefepime and vancomycin. -ultrasound of the liver unremarkable, status post cholecystectomy Objective vital signs Vital Sign Date Time Temp Pulse Resp B/P (MAP) Pulse Ox O2 Delivery O2 Flow Rate FiO2 03/29/25 12:00 98.0 66 12 119/69 (86) 98 98.0 03/29/25 11:37 Room Air* 0 21 Total Intake and Output 03/28/25 03/28/25 03/29/25 15:00 23:00 07:00 Intake Total 2800 ml 500 ml 701.875 ml Balance 2800 ml 500 ml 701.875 ml medications Current Medications Medications Dose Ordered Sig/Leonidas Route Start Time Stop Time Status Last Admin Dose Admin Norepinephrine Bitartrate 250 ml @ 3.75 mls/hr Q24H IV 03/28/25 13:15 Hold 03/28/25 15:42 3.75 MLS/HR Acetaminophen 325 mg Q4HP PRN PO 03/28/25 13:15 Ondansetron HCl 4 mg Q4HP PRN IV 03/28/25 13:15 Enoxaparin Sodium 40 mg DAILY SC 03/29/25 10:00 03/29/25 10:05 40 MG Sodium Chloride 1,000 ml @ 100 mls/hr Q10H IV 03/28/25 13:15 03/29/25 09:15 100 MLS/HR Vancomycin HCl 0 ml @ 0 mls/hr PER PHARMACY IV 03/28/25 13:15 Cefepime HCl 50 ml @ 12.5 mls/hr Q12HR IV 03/28/25 22:00 03/29/25 10:05 12.5 MLS/HR Pantoprazole Sodium 40 mg DAILY IV 03/29/25 10:00 03/29/25 10:05 40 MG Acetaminophen/ Hydrocodone Bitart 1 tab BID PRN PO 03/29/25 11:00 Vancomycin HCl 100 ml @ 100 mls/hr Q12H IV 03/29/25 15:00 Examination General examination- awake, alert, oriented HEENT- [place], no acute nasal discharge Cardiovascular- S1-S2 audible, rate and rhythm regular, no murmur Respiratory- CTAB, no wheeze or rhonchi Gastrointestinal-nontender, bowel sound+. Nondistended Musculoskeletal-no acute joint swelling or tenderness or redness Lower extremity- no leg edema Neurological- cranial nerves intact, no acute dysarthria or dysphagia Psychiatry- denies depression or SI or HI Skin- no acute rash or purpura laboratory and microbiology Laboratory Tests 03/29/25 06:17 Test 03/29/25 06:17 Range/Units Serum Glucose 91 74-106 mg/dL Microbiology Date/Time Source Procedure Growth Status 03/28/25 11:44 Blood Blood Culture - Preliminary NO GROWTH AFTER 24 HOURS OF INCUBATION. Resulted Problem List/Assessment/Plan Problem List/Assessment/Plan Assessment and plan # Septic shock probably secondary to acute complicated UTI # acute Complicated UTI -patient with leukocytosis WBC 16.7, Patient had tachypnea, hypotension -units is significant for UTI -status post Levophed -pending urine culture -blood culture no growth so far -MRSA negative -continue IV antibiotic cefepime and vancomycin as per pharmacy protocol -continue IV fluids with was kept -avoid dehydration and nephrotoxic drugs -monitor vitals # transaminitis - ultrasound of the liver-unremarkable, status post cholecystectomy -monitor LFT -pending acute hepatitis panel #TIMI hemodynamically mediated (VMN) -avoid dehydration and nephrotoxic drugs -continue IV fluids with whiskey #Chronic back pain -Tylenol PRN #Obesity -counseled of the feet up obesity on health, he drives Goals of care, Code status ; discussed with >15 minutes PUD prophylaxis: Pantoprazole DVT prophylaxis: Lovenox Plan discussed with Dr. Kingsley , nursing staff, Total time spent on patient evaluation, chart review, assessment and plan, discussion discussion >35 minutes Plan discussed with: Patient, Other (RN) My Orders My Orders Orders - OLIVE GORDON Procedure Category Date Status Time LIVER US 03/29/25 Logged 12:21 Acute Hepatitis Panel LAB 03/29/25 In Process 12:22 Visit Coding STANDARD RES Billing Provider: MURRAY MEIER MD Date of Service if different f: Mar 29, 2025 Common Visit Codes: [id number] INP/OBS CARE(HIGH) OLIVE GORDON Mar 29, 2025 13:11
[2025-03-29] MEDS ORDERED: LIDO2.5C3 TOP (13:52)
[2025-03-29] MEDS ORDERED: BACL10TA PO (13:52)
[2025-03-29] MEDS ORDERED: HYDR-3682 PO ×2 (13:52→13:54)
[2025-03-29] MEDS ORDERED: MELO7.5T7 PO (13:52)
[2025-03-29] MEDS ORDERED: SEMA4INJ SC (13:52)
[2025-03-29] MEDS ORDERED: HYDR-4072 PO (13:52)
--- NOTE | 2025-03-29 14:09 | DVH ---
EXAM DESCRIPTION: US LIVER CLINICAL HISTORY: CIRRHOSIS VERSUS HEPATITIS COMPARISON: None TECHNIQUE: Using real-time ultrasonography multiple images of the abdomen were obtained. FINDINGS: The liver measures 14.3 cm. No focal liver masses. The liver echongenicity is within normal limits. The partially imaged pancreas is unremarkable. Status post cholycystectomy. The common bile duct measures 8 mm in diameter. There is no free intraperitoneal fluid. The right kidney measures 9.1 cm. No right renal calculi or hydronephrosis. IMPRESSION: 1. Unremarkable evaluation of the liver. 2. Status post cholecystectomy.
[2025-03-29] MEDS: POTASSIUM CHL 20 Meq TABLET PO ONE (15:13)
[2025-03-29] MEDS: VANCOMYCIN 750MG KIT 100 ML IV SCH (15:15)
--- NOTE | 2025-03-29 16:38 | DVHSR ---
APPROVED REPORT EXAM: Two-dimensional and M-mode echocardiogram with Doppler and color Doppler. Blood Pressure: 124/75 mmHg INDICATION Sepsis RISK FACTORS Obesity: Height: 5'4", Weight: 213 DIMENSIONS LVDd 4.3 (3.8-5.7cm) LA (2D) 3.5 (1.9-4.0cm) Aortic Root 2.9 (2.0-3.7cm) LVDs 2.6 (2.5-4.0cm) LA (MM) (1.9-4.0cm) Aortic Cusp Exc 1.7 (1.5-2.0cm) EF (%) 62.0 (55-70%) Rt. Atrium 3.4 (1.9-4.0cm) Asc. Aorta cm IVSd 1.1 (0.7-1.1cm) RV (D) (1.8-2.4cm) PWd 1.1 (0.7-1.1cm) Mitral Valve Mitral Mitral Stenosis E wave 0.83m/s MV Mean GR. mmHg A wave 0.95m/s MV Peak GR. mmHg E/A ratio 0.9 2D MVA cm2 DECEL Time 210ms PRESS 1/2 Time ms Aortic Valve Aortic Valve Aortic Stenosis V1 1.21m/s AO Mean GR. 5mmHg V2 1.60m/s AO Peak GR. 10mmHg LVOT Diameter 1.7 (1.8-2.4cm) Doppler EUGENE 1.72cm2 Pulmonic Valve V2 0.88m/s Tricuspid Valve TR Velocity 2.48m/s RVSP 28mmHg Conclusion LV EF IS 65% NORMAL VALVES NORMAL RV FUNCTION NO EFFUSION
[2025-03-29 17:11] LABS: Potassium 4.0 mmol/L (3.5-5.1)
[2025-03-29 17:12] LABS: Anion Gap 7 (5-15); Carbon Dioxide 24 mmol/L (20-31)
[2025-03-29 17:17] LABS: BUN/Creatinine Ratio 10.8 (10.0-20.0); Blood Urea Nitrogen 9 mg/dL (9-23); Calcium 8.2 mg/dL (8.7-10.4); Chloride 115 mmol/L (98-107); Glucose 97 mg/dL (74-106); Sodium 146 mmol/L (136-145)
[2025-03-29] MEDS: HYDROcodone-ACET 10/325MG TAB PO PRN (20:28)
[2025-03-29] MEDS: CEFEPIME 1GM/50ML 50 ML IV SCH (22:45)
[2025-03-30 01:00] VITALS: BP 119/69; PULSE 69; RESP 16; TEMP 98; O2SAT 96
[2025-03-30 05:00] VITALS: BP 129/87; PULSE 57; RESP 16; TEMP 98.2; O2SAT 97
[2025-03-30 06:52] LABS: Hematocrit 35.7 % (36.0-46.0); Nucleated Red Blood Cells % 0.1 %
[2025-03-30 06:58] LABS: Hemoglobin 11.8 g/dL (12.2-16.2); Mean Corpuscular Hemoglobin 26.5 pg (28.0-32.0); Mean Corpuscular Volume 80.1 fL (80.0-100.0)
[2025-03-30 07:09] LABS: Alkaline Phosphatase 76 U/L (46-116); Anion Gap 8 (5-15); BUN/Creatinine Ratio 9.8 (10.0-20.0); Carbon Dioxide 24 mmol/L (20-31); Glucose 86 mg/dL (74-106); Magnesium 2.0 mg/dL (1.6-2.6); Potassium 4.2 mmol/L (3.5-5.1); Sodium 143 mmol/L (136-145); Total Protein 5.7 g/dL (5.7-8.2)
[2025-03-30 07:10] LABS: Albumin 3.6 g/dL (3.2-4.8); Bilirubin, Total 0.7 mg/dL (0.2-1.0)
[2025-03-30 07:19] LABS: Alanine Aminotransferase 184 U/L (7-40); Blood Urea Nitrogen 8 mg/dL (9-23); Calcium 8.3 mg/dL (8.7-10.4); Chloride 111 mmol/L (98-107)
[2025-03-30 08:00] VITALS: PULSE 60; PULSE 65; RESP 16; O2SAT 96
[2025-03-30 10:11] LABS: Hepatitis B Surface Antigen Negative (Negative)
[2025-03-30 11:11] LABS: Hepatitis C Antibody Negative (Negative)
[2025-03-30] MEDS ORDERED: AUG875T PO (11:55)
[2025-03-30] MEDS ORDERED: SACC1CAP3 PO (11:55)
--- NOTE | 2025-03-30 12:59 | DVHDSRES ---
Discharge Summary Date of Admission Resident Creating Document: OLIVE GORDON RESIDENT Mar 28, 2025 at 13:13 Date of Discharge: Mar 30, 2025 Admitting Diagnosis Septic shock likely due to acute complicated UTI Labs/Diagnostic Data: Laboratory Results Test 03/30/25 06:11 03/29/25 06:17 03/28/25 21:23 03/28/25 17:11 White Blood Count 6.4 10^3/uL (4.4-10.8) Red Blood Count 4.46 10^6/uL (4.0-5.20) Hemoglobin 11.8 g/dL (12.2-16.2) Hematocrit 35.7 % (36.0-46.0) Mean Corpuscular Volume 80.1 fL (80.0-100.0) Mean Corpuscular Hemoglobin 26.5 pg (28.0-32.0) Mean Corpuscular Hemoglobin Concent 33.0 g/dL (32.0-36.0) Red Cell Distribution Width 14.6 % (11.8-14.3) Platelet Count 215 10^3/uL (140-450) Mean Platelet Volume 9.3 fL (6.9-10.8) Neutrophils (%) (Auto) 51.7 % (37.0-80.0) Lymphocytes (%) (Auto) 34.1 % (10.0-50.0) Monocytes (%) (Auto) 9.5 % (0.0-12.0) Eosinophils (%) (Auto) 3.6 % (0.0-7.0) Basophils (%) (Auto) 1.1 % (0.0-2.0) Neutrophils # (Auto) 3.3 10 ^3/uL (1.6-8.6) Lymphocytes # (Auto) 2.2 10 ^3/uL (0.4-5.4) Monocytes # (Auto) 0.6 10 ^3/uL (0-1.3) Eosinophils # (Auto) 0.2 10 ^3/uL (0-0.8) Basophils # (Auto) 0.1 10 ^3/uL (0-0.2) Nucleated Red Blood Cells 0.1 % Sodium Level 143 mmol/L (136-145) Potassium Level 4.2 mmol/L (3.5-5.1) Chloride Level 111 mmol/L (98-107) Carbon Dioxide Level 24 mmol/L (20-31) Anion Gap 8 (5-15) Blood Urea Nitrogen 8 mg/dL (9-23) Creatinine 0.82 mg/dL (0.550-1.02) Glomerular Filtration Rate Calc 77 mL/min (>90) BUN/Creatinine Ratio 9.8 (10.0-20.0) Serum Glucose 86 mg/dL (74-106) Calcium Level 8.3 mg/dL (8.7-10.4) Phosphorus Level 2.4 mg/dL (2.4-5.1) Magnesium Level 2.0 mg/dL (1.6-2.6) Total Bilirubin 0.7 mg/dL (0.2-1.0) Aspartate Amino Transferase (AST) 104 U/L (13-40) Alanine Aminotransferase (ALT) 184 U/L (7-40) Alkaline Phosphatase 76 U/L (46-116) Total Protein 5.7 g/dL (5.7-8.2) Albumin 3.6 g/dL (3.2-4.8) Random Vancomycin Level 7.7 ug/mL (5-10) Hepatitis A IgM Antibody Negative Hepatitis B Surface Antigen Negative (Negative) Hepatitis B Core IgM Antibody Negative (Negative) Hepatitis C Antibody Negative (Negative) Hemoglobin A1c 5.5 % A1C (<5.7) Influenza Type A Antigen Negative (Negative) Influenza Type B Antigen Negative (Negative) SARS-CoV-2 Antigen (Rapid) Negative (NEGATIVE) Test 03/28/25 12:15 03/28/25 11:23 03/28/25 11:22 Urine Color Yellow (Yellow) Urine Clarity Hazy (Clear) Urine pH 5.5 (5.0-9.0) Urine Specific [place] 1.019 (1.001-1.035) Urine Protein Trace (Negative) Urine Ketones Negative (Negative) Urine Blood Negative /uL (Negative) Urine Nitrite Negative (Negative) Urine Bilirubin Negative (Negative) Urine Urobilinogen Normal mg/dL (Negative) Urine Leukocyte Esterase 2+ /uL (Negative) Urine RBC 2 /hpf (0 - 4) Urine Microscopic WBC 4 /HPF (0-5) Urine Squamous Epithelial Cells Few /hpf (<5) Urine Bacteria Few /hpf (None Seen) Urine Hyaline Casts Many /lpf (0 - 2) Urine Glucose Normal mg/dL (Normal) Urine Opiates Screen Pos (NEGATIVE) Urine Fentanyl Screen Neg (NEGATIVE) Urine Barbiturates Screen Neg (NEGATIVE) Urine Phencyclidine Screen Neg (NEGATIVE) Urine Amphetamines Screen Neg (NEGATIVE) Urine Benzodiazepines Screen Neg (NEGATIVE) Urine Cocaine Screen Neg (NEGATIVE) Urine Cannabinoids Screen Neg (NEGATIVE) Prothrombin Time 10.8 sec (9.3-11.8) Prothrombin Time INR 1.02 (0.9-1.15) Activated Partial Thromboplast Time 27.9 SEC (24.5-34.5) Lactic Acid Level 1.8 mmol/L (0.4-2.0) Triglycerides Level 122 mg/dL (< 150) Cholesterol Level 147 mg/dL (< 200) LDL Cholesterol 79 mg/dL (< 100) HDL Cholesterol 45 mg/dL (40-59) Lipase 33 U/L (12-53) Vitamin B12 Level 613 pg/mL (211-911) Thyroid Stimulating Hormone (TSH) 3.06 uIU/mL (0.55-4.78) Vitamin D 25-Hydroxy 53.9 ng/mL (30.0-100) Other Laboratory Tests 03/30/25 06:11 Brief Hx & Hospital Course: Margot Kumar is a 69-year-old female patient who presents to the ED with chief complaint of generalized weakness, fatigue, chills and headaches which all started one night before her admission. On further inquiry patient also reported increased frequency and urgency of micturition lately. She was not eating well and drinking when lately. Upon arrival to emergency department patient was found to have low-grade fever, leukocytosis with WBC 16.7, microcytosis with MCV 79.1, COVID and flu negative, urinalysis revealed leukocyte esterase 2+, WBC 4, bacteria few. CT abdomen and pelvis- No acute abnormality within the abdomen or pelvis. UDS positive for opiates. Ultrasound of the liver unremarkable, status post cholecystectomy. Hospital course-patient came with a septic shock due to acute complicated UTI. Patient was on Levophed for hypotension along with the IV antibiotic cefepime and vancomycin. Patient was treated with the IV fluid as per sepsis protocol. Patient's symptoms improved. Blood culture no growth so far. Echo 2D EF 60%. Patient is adamant about going home today. Patient is being discharged home with the Augmentin 75 mg p.o. b.i.d. for 7 days. Patient was advised to follow up at [facility] with the urine culture sensitivity report. Patient was also advised to follow up with the PCP. Patient was hemodynamically stable on discharge. All questions answered. General examination- awake, alert, oriented HEENT- PEERLA, no acute nasal discharge Cardiovascular- S1-S2 audible, rate and rhythm regular, no murmur Respiratory- CTAB, no wheeze or rhonchi Gastrointestinal-nontender, bowel sound+. Nondistended Musculoskeletal-no acute joint swelling or tenderness or redness Lower extremity- no leg edema Neurological- cranial nerves intact, no acute dysarthria or dysphagia Psychiatry- denies depression or SI or HI Skin- no acute rash or purpura Assessment # Septic shock probably secondary to acute complicated UTI /urosepsis # acute Complicated UTI # transaminitis #TIMI hemodynamically mediated (VMN) #Chronic back pain #Obesity Plan Augmentin as prescribed Probiotic [facility] follow up with the urine culture sensitivity report Please follow up with the PCP Avoid dehydration, please drink plenty of water Resume other home medications Operations or Procedures [place] [id number] Ph: [phone] DIAGNOSTIC IMAGING Diagnostic Imaging Report : [id number] Signed PATIENT: MARGOT KUMAR ACCT: [id number] UNIT: [id number] : 1955 LOC: [facility] AGE / SEX: 70 / F ADM STATUS: ADM IN SERVICE 1221 ORDERING PHYSICIAN: OLIVE GORDON RESIDENT PROCEDURE(s): LIVUS - LIVER REASON: CIRRHOSIS VERSUS HEPATITIS ORDER NUMBER(s): [id number], ACCESSION NUMBER(s): [id number] EXAM DESCRIPTION: US LIVER CLINICAL HISTORY: CIRRHOSIS VERSUS HEPATITIS COMPARISON: None TECHNIQUE: Using real-time ultrasonography multiple images of the abdomen were obtained. FINDINGS: The liver measures 14.3 cm. No focal liver masses. The liver echongenicity is within normal limits. The partially imaged pancreas is unremarkable. Status post cholycystectomy. The common bile duct measures 8 mm in diameter. There is no free intraperitoneal fluid. The right kidney measures 9.1 cm. No right renal calculi or hydronephrosis. IMPRESSION: 1. Unremarkable evaluation of the liver. 2. Status post cholecystectomy. ATED BY: JUNIOR KENYON MD DICTATED DATE/TIME: 03/29/251405 SIGNED BY: JUNIOR KENYON MD SIGNED DATE/TIME: 03/29/251405 CC: [place] [id number] Ph: [phone] DIAGNOSTIC IMAGING Diagnostic Imaging Report : [id number] Signed PATIENT: MARGOT KUMAR ACCT: [id number] UNIT: [id number] : 1955 LOC: ER ROOM / BED: / AGE / SEX: 69 / F ADM STATUS: REG ER SERVICE 1110 ORDERING PHYSICIAN: KALIE WALKER MD PROCEDURE(s): ABPL - CT AB PEL WO CON-NO ORAL OR IV REASON: constipation ORDER NUMBER(s): [id number], ACCESSION NUMBER(s): [id number] EXAM DESCRIPTION: CT CT AB PEL WO CON-NO ORAL OR IV CLINICAL HISTORY: constipation COMPARISON: CT ABD PELVIS WO CONTRAST on DOS: 03/06/22 TECHNIQUE: CT abdomen and pelvis without IV contrast was performed. Coronal and sagittal MPR images were generated.CTDI/ DLP = 19.09 / 1118.26 Dose reduction technique with one or more of the following methods was performed: Automated exposure control, adjustment of the mA and/or kV according to patient size, use of iterative reconstruction technique FINDINGS: Lower chest: Stable pulmonary micronodules in the lung bases. Liver: Homogenous in attenuation. . Biliary: Status post cholecystectomy. No biliary ductal dilatation. Pancreas: No fat stranding or focal lesion. Spleen: Normal in size.. Adrenal glands: No nodularity. Kidneys: No nephrolithiasis. No hydroureteronephrosis. . Bladder: Underdistended, limiting evaluation. Reproductive organs: Normal. Bowel: No bowel wall thickening or dilatation. Colonic diverticulosis without evidence of diverticulitis. Normal appendix.. Peritoneum: No free fluid. No free air. Vessels: Normal caliber abdominal aorta. Moderate atherosclerotic calcifications.. Lymph nodes: No suspicious lymph nodes. Soft tissues: Unremarkable. . Osseous structures: No acute fracture or subluxation. No suspicious osseous lesions. Degenerative changes of the visualized thoracolumbar spine. IMPRESSION: 1. No acute abnormality within the abdomen or pelvis. ATED BY: JUNIOR KENYON MD DICTATED DATE/TIME: 03/28/251217 SIGNED BY: JUNIOR KENYON MD SIGNED DATE/TIME: 03/28/251217 CC: Condition at Discharge: Stable Final Diagnosis/Problems List # Septic shock probably secondary to acute complicated UTI # acute Complicated UTI # transaminitis #TIMI hemodynamically mediated (VMN) #Chronic back pain #Obesity Discharge Disposition: Home Discharge Instruct/Medications Diet: Regular Activity: No Restrictions, As Tolerated Follow Up/Referral: [facility] PCP Medications: as above Scheduled Amoxicillin & Pot Clavulanate (Augmentin Tablet), 875 MG PO BID Lidocaine-Prilocaine (Lidocaine/Prilocaine), 1-3 GRAMS TOP TID, (Reported) Semaglutide (Ozempic), 1 MG SC QWEEKLY, (Reported) Yeast (S. Boulardii)(S. Cerevi (Probiotic), 250 MG PO BID Scheduled PRN Baclofen (Baclofen), 1 TAB PO BIDPRN PRN for PAIN SCALE 1 THRU 6, (Reported) Hydrocodone-Acetaminophen (Hydrocodone/Acetaminophen 10-325 mg), 1 TAB PO BIDPRN PRN for PAIN SCALE 1 THRU 6, (Reported) Hydroxyzine Hcl (Hydroxyzine Hcl), 1 TAB PO HSPRN PRN for FOR INSOMNIA, (Reported) Meloxicam (Meloxicam), 1 TAB PO QHSP PRN for PAIN, (Reported) Discharge Statement: "Patient was advised to return to the ER or call 911 if any headaches, dizziness, shortness of breath, chest pain, abdominal pain, bleeding, fevers, or worsening of medical condition. Patient was counseled about treatment plan, medications, possible side effects, patientverbalized understanding. All questions were answered to the best of my ability. This discharge took greater then 30 minutes in planning, reviewing documentation, counseling the patient, and discussing with other team members." ASSESSMENT ASSESSMENT Assessment septic shock Visit Coding STANDARD RES Billing Provider: MURRAY MEIER MD Date of Service if different f: Mar 30, 2025 Common Visit Codes: 34136-IKM/OBS DISCH DAY >30min OLIVE GORDON RESIDENT Mar 30, 2025 12:[address] RESIDENT Mar 31, 2025 08:02
[2025-03-30 14:17] LABS: Protein, Urine 20.5 mg/dL (1-14)
== END 2025-03-30 15:50 | disposition home or self-care (01) | DRG 871 ==
LOC: ER 10:11 → OVERFLOW 13:13 → TELE-WESTW 03-29 12:37
PROVIDERS: ADMIT Student in an Organized Health Care Education/Training Program; ATTEND Student in an Organized Health Care Education/Training Program
DX: A41.9 Sepsis, unspecified organism (principal); N17.0 Acute kidney failure with tubular necrosis; R65.21 Severe sepsis with septic shock; N39.0 Urinary tract infection, site not specified; E66.9 Obesity, unspecified; Z20.822 Contact with and (suspected) exposure to COVID-19; K59.00 Constipation, unspecified; G89.29 Other chronic pain; R74.01 Elevation of levels of liver transaminase levels; Z90.49 Acquired absence of other specified parts of digestive tract; Z79.899 Other long term (current) drug therapy; Z68.37 Body mass index [BMI] 37.0-37.9, adult
CPT/HCPCS: 36415; 36600; 71045; 74176; 76705; 80048; 80053; 80061; 80074; 80202; 80307; 81001; 82306; 82570; 82607; 82805; 83036; 83605; 83690; 83735; 84100; 84156; 84300; 84443; 85025; 85610; 85730; 87040; 87081; 87086; 87426; 87804; 93306; 96360; G0378; J2470; J3490